=== PATIENT | male | born 1960 | race Caucasian/White ===

== ENCOUNTER 2017-10-13 10:04 | Day surgery (SDC) | payer BC ==
[2017-10-11 17:53] VITALS: BMI 25.7
[~2017-10-13 10:04] MED LIST: LACTATED RINGERS 1,000 ML IV SCH; LIDOCAINE 1% 20 ML VIAL (10MG/ML) FOR IV START INTRADERMA PRN
[2017-10-13 11:04] VITALS: RESP 16; TEMP 97.7
[2017-10-13 11:13] LABS: Glucose,Whole Blood 97 mg/dL (75-99)
[2017-10-13] MEDS ORDERED: PROPOFOL 10 MG/ML 20 ML VIAL IV ONE (11:38)
--- NOTE | 2017-10-13 11:48 | P.PCN ---
Date of Procedure: 10/13/17 Procedure(s) Performed: BRIEF HISTORY: Patient is a 57-year-old, pleasant, pleasant white male, scheduled for an upper endoscopy as a part of evaluation of epigastric pain, excessive belching and postprandial abdominal bloating for the last 3 months duration. He was tried on Carafate as well as Nexium with no relief. PROCEDURE PERFORMED: Esophagogastroduodenoscopy with biopsy. PREOPERATIVE DIAGNOSIS: Epigastric pain, post prandial abdominal bloating for 3 months duration IV sedation per anesthesia. PROCEDURE: After informed consent was obtained, the patient was brought into the endoscopy unit. IV sedation was administered by Anesthesia under continuous monitoring. Initially the Olympus GIF-140 video endoscope was inserted into the mouth. Esophagus intubated without any difficulty. It was gradually advanced into the stomach and duodenum and carefully examined. The bulb and the second part of the duodenum appeared normal. The abscess were done from the duodenum to rule out celiac disease. The scope at this time was withdrawn to the stomach , adequately insufflated with air, and upon careful examination, mucosa of the antrum, had mild gastritis and biopsies were done from this area. The body, cardia and the fundus appeared normal. The scope was then withdrawn into the esophagus. The GE junction was located at 39 cm from the incisors. There was a small hiatal hernia noted. There was one superficial erosion at the GE junction consistent with LA grade A reflux esophagitis. The rest of the esophagus appeared normal and the patient tolerated the procedure well. IMPRESSION: 1. Mild antral gastritis. 2. Small hiatal hernia and LA grade a reflux esophagitis. RECOMMENDATIONS: The findings of this examination were discussed with the patient as well as his family. He was advised to follow with the biopsy results. He was advised to try Zantac and 50 mg twice daily [id number] and follow antireflux measures..
[2017-10-13 12:47] VITALS: BP 134/87; PULSE 72
== END 2017-10-13 13:09 | disposition home or self-care (01) ==
LOC: ORWHC2ENDO 10:04
PROVIDERS: ATTEND Internal Medicine Gastroenterology
DX: K21.0 Gastro-esophageal reflux disease with esophagitis (principal); K29.70 Gastritis, unspecified, without bleeding; K44.9 Diaphragmatic hernia without obstruction or gangrene; I10 Essential (primary) hypertension; Z88.1 Allergy status to other antibiotic agents; Z79.899 Other long term (current) drug therapy
CPT/HCPCS: 43239; 88305; 88342; J2704

== ENCOUNTER → 2018-01-12 | Outpatient (CLI) | payer BC ==
--- NOTE | 2018-01-12 14:40 | XR ---
EXAMINATION TYPE: XR lumbosacral spine min 4V DATE OF EXAM: 01/12/2018 CLINICAL HISTORY: Low back pain with history of arthritis TECHNIQUE: Frontal, lateral, and oblique images of the lumbar spine are obtained. COMPARISON: None FINDINGS: There are 5 lumbar type vertebral bodies identified. There is slight retrolisthesis of L2 with respect to L3. The remaining lumbar spine shows satisfactory alignment without evidence of acut e fracture or dislocation. Vertebral body heights are maintained. Mild degenerative changes of the lumbar spine is seen as intervertebral disc height loss at L2-L3 and L5-S1 with small anterior osteop hyte at L2-L3 and facet arthropathy from L3 through S1. The oblique images appear within normal limit s. The overlying soft tissue appears unremarkable. Cholecystectomy clips are incidentally noted. The re is gastrectasis with an air-filled prominent stomach contour. IMPRESSION: 1. No acute fracture of the lumbar spine. 2. Mild multilevel degenerative changes of the lumbar spine without appreciated radiographic neural f oraminal narrowing. Degree of neuroforaminal narrowing, spinal canal stenosis and disc herniation or better evaluated with MRI, which could be performed for further evaluation. 3. Minimal retrolisthesis of L2 on L3, likely degenerative in nature.
== END | disposition home or self-care (01) ==
LOC: RADXRMAIN 13:44
PROVIDERS: ATTEND Internal Medicine
DX: M43.16 Spondylolisthesis, lumbar region (principal); M47.816 Spondylosis without myelopathy or radiculopathy, lumbar region
CPT/HCPCS: 72110

== ENCOUNTER → 2018-05-25 | Outpatient (CLI) | payer BC ==
--- NOTE | 2018-05-25 23:04 | MR ---
EXAMINATION TYPE: MR lumbar spine wo con DATE OF EXAM: 05/25/2018 COMPARISON: 03/18/2016 HISTORY: LBP, BLE radic x 3 years TECHNIQUE: Multiplanar, multisequence images of the lumbar spine were acquired. The lumbar vertebra have normal alignment. There is some degenerative mild disc space narrowing from L2 to S1. There are posterior disc bulges and herniation at L2-3 L3-4 L4-5. There is developmentally large spinal canal and no significant spinal stenosis. There is also small posterior disc bulge at L5 -S1. Lumbar nerve roots appear normal. There is bilateral L5-S1 neural foraminal narrowing due to dis c space narrowing and mild facet arthropathy. There is no compression fracture. There is no paraspina l mass. Upper sacroiliac joints appear normal. There is mild left-sided neural foraminal narrowing at L3-4. IMPRESSION: Multilevel spondylotic changes and posterior multilevel lumbar disc herniation. No spinal stenosis. M ild neural foraminal narrowing at L5-S1.
== END | disposition home or self-care (01) ==
LOC: RADMRIMAIN 15:36
PROVIDERS: ATTEND Internal Medicine
DX: M99.73 Connective tissue and disc stenosis of intervertebral foramina of lumbar region (principal); M51.26 Other intervertebral disc displacement, lumbar region; M47.816 Spondylosis without myelopathy or radiculopathy, lumbar region
CPT/HCPCS: 72148

== ENCOUNTER 2018-07-18 08:09 | Day surgery (SDC) | payer BC ==
[2018-07-17 09:41] VITALS: BMI 25.7
[~2018-07-18 08:09] MED LIST changes: -LIDOCAINE 1% 20 ML VIAL (10MG/ML) FOR IV START INTRADERMA PRN
[2018-07-18 08:55] VITALS: RESP 16; TEMP 98.1
[2018-07-18] MEDS ORDERED: LIDOCAINE 1% 20 ML VIAL (10MG/ML) FOR IV START INTRADERMA ONE (09:06)
--- NOTE | 2018-07-18 09:54 | P.PCN ---
Date of Procedure: 07/18/18 Procedure(s) Performed: PREOPERATIVE DIAGNOSIS: 1- Lumbar Degenerative Disc Diseases 2-Lumbar radiculopathy POSTOPERATIVE DIAGNOSIS: 1-Lumber Degenerative Disc Diseases 2-Lumbar radiculopathy PROCEDURE 1. Lumbar epidural steroid injection under fluoroscopic guidance at the L4-5 level. 2. Lumbar epidurogram. ANESTHESIA: Local with 1% lidocaine 3 ml and , moderate sedation with intravenous Versed 2 mg ,and fentanyle 50 Mcg EBL: Minimal PROCEDURE INDICATION: The patient with low back pain and radiculitis symptoms unresponsive to conservative treatment. Fluoroscopy was used to optimize visualization of the needle placement and to maximize safety. PROCEDURE DESCRIPTION / TECHNIQUE: The patient was seen and identified in the preoperative area. Risks, benefits , complications including but not limited to infections ,bleeding ,allergic reaction to the medications ,nerve damage and not complete pain releife , and alternatives were discussed with the patient. The patient agreed to proceed with the procedure and signed the consent. IV was started, and vital signs were stable. Patient was taken to the OR and time out was completed. The patient was placed in the prone position on procedure table and a pillow was placed under the abdomen to reduce lumbar lordosis. The lumbosacral area was prepped and draped in the usual sterile fashion.ere closely monitored during the procedure. Conscious sedation was used during the procedure to decrease patients anxiety. Vital signs was monitered during the entire procedure. Using anterior-posterior fluoroscopy, the L4-5 interlaminar space was identified and the skin over this site was marked and then infiltrated with 1% lidocaine subcutaneously. Subsequently, a 20-gauge Tuohy epidural needle was inserted and advanced toward the epidural space using the ``Loss of resistance technique and guided by AP and lateral fluoroscopy. The correct needle position in the epidural space was verified with the injection of 2 mL of the water soluble contrast dye Isovue 200 contrast and observing an excellent epidurogram with the epidural spread of the dye, after negative aspiration for blood and CSF and in the absence of paresthesias. Again after negative aspiration, a 6 ml mixture containing 20 mg of Dexamethasone and 2 ml of preservative free Normal Saline, and 2 ml of preservative free lidocaine 1% solution was injected and a washout of epidurogram was seen. Needle was withdrawn intact, skin was cleansed, and bandages were applied. COMPLICATIONS: None DISPOSITION / PLANS: The patient was placed in a supine position and transferred to the recovery area in a stable condition for observation. There was no evidence of lower extremity motor or sensory deficit after the procedure. Patient was discharged from the recovery room after meeting discharge criteria. Home discharge instructions were given to the patient by the staff. The patient was reexamined prior to discharge. The patient will schedule a follow up in the clinic in 2-4 weeks.
[2018-07-18] MEDS ORDERED: IV FLUID CONTINUATION 1,000 ML IV ONE (09:57)
--- NOTE | 2018-07-18 10:02 | FL ---
EXAMINATION TYPE: FL guided pain mgmt statistic DATE OF EXAM: 07/18/2018 CLINICAL HISTORY: Low back pain. TECHNIQUE: Fluoroscopy. COMPARISON: None. FINDINGS: Fluoroscopic guidance was provided during pain relief procedure performed by Dr. Ramos . A total of 9 seconds of fluoroscopic time was utilized during the procedure and two spot images ar e acquired. Images acquired shows needle localization at L4-L5 level. IMPRESSION: As Above.
[2018-07-18 10:15] VITALS: BP 122/81; PULSE 73
== END 2018-07-18 10:32 | disposition home or self-care (01) ==
LOC: ORPAIN 08:09
PROVIDERS: ATTEND Specialist
DX: M51.16 Intervertebral disc disorders with radiculopathy, lumbar region (principal); I10 Essential (primary) hypertension; K21.9 Gastro-esophageal reflux disease without esophagitis; M19.90 Unspecified osteoarthritis, unspecified site; Z88.1 Allergy status to other antibiotic agents
CPT/HCPCS: 62323; J2250; J1030; J3010; Q9966; 99152

== ENCOUNTER 2018-08-08 07:44 | Day surgery (SDC) | payer BC ==
[2018-08-06 09:04] VITALS: BMI 37.0
[2018-08-08 08:46] VITALS: RESP 18; TEMP 98
[2018-08-08] MEDS ORDERED: LACTATED RINGERS 1,000 ML IV ONE (08:47)
[2018-08-08] MEDS ORDERED: LIDOCAINE 1% 20 ML VIAL (10MG/ML) FOR IV START INTRADERMA ONE (08:47)
--- NOTE | 2018-08-08 10:09 | P.PCN ---
Date of Procedure: 08/08/18 Procedure(s) Performed: PREOPERATIVE DIAGNOSIS: 1- Lumbar Degenerative Disc Diseases 2-Lumbar radiculopathy POSTOPERATIVE DIAGNOSIS: 1-Lumber Degenerative Disc Diseases 2-Lumbar radiculopathy PROCEDURE 1. Lumbar epidural steroid injection under fluoroscopic guidance at the L5-S1 level. 2. Lumbar epidurogram. ANESTHESIA: Local with 1% lidocaine 3 ml and , moderate sedation with intravenous Versed 2 mg ,and fentanyle 50 Mcg EBL: Minimal PROCEDURE INDICATION: The patient with low back pain and radiculitis symptoms unresponsive to conservative treatment. Fluoroscopy was used to optimize visualization of the needle placement and to maximize safety. PROCEDURE DESCRIPTION / TECHNIQUE: The patient was seen and identified in the preoperative area. Risks, benefits , complications including but not limited to infections ,bleeding ,allergic reaction to the medications ,nerve damage and not complete pain releife , and alternatives were discussed with the patient. The patient agreed to proceed with the procedure and signed the consent. IV was started, and vital signs were stable. Patient was taken to the OR and time out was completed. The patient was placed in the prone position on procedure table and a pillow was placed under the abdomen to reduce lumbar lordosis. The lumbosacral area was prepped and draped in the usual sterile fashion.ere closely monitored during the procedure. Conscious sedation was used during the procedure to decrease patients anxiety. Vital signs was monitered during the entire procedure. Using anterior-posterior fluoroscopy, the L5-S1 interlaminar space was identified and the skin over this site was marked and then infiltrated with 1% lidocaine subcutaneously. Subsequently, a 20-gauge Tuohy epidural needle was inserted and advanced toward the epidural space using the ``Loss of resistance technique and guided by AP and lateral fluoroscopy. The correct needle position in the epidural space was verified with the injection of 2 mL of the water soluble contrast dye Isovue 200 contrast and observing an excellent epidurogram with the epidural spread of the dye, after negative aspiration for blood and CSF and in the absence of paresthesias. Again after negative aspiration, a 6 ml mixture containing 80 mg of Depo- Medrol, and 2 ml of preservative free Normal Saline, and 2 ml of preservative free lidocaine 1% solution was injected and a washout of epidurogram was seen. Needle was withdrawn intact, skin was cleansed, and bandages were applied. COMPLICATIONS: None DISPOSITION / PLANS: The patient was placed in a supine position and transferred to the recovery area in a stable condition for observation. There was no evidence of lower extremity motor or sensory deficit after the procedure. Patient was discharged from the recovery room after meeting discharge criteria. Home discharge instructions were given to the patient by the staff. The patient was reexamined prior to discharge. The patient will schedule a follow up in the clinic in 2-4 weeks.
[2018-08-08] MEDS ORDERED: IV FLUID CONTINUATION 1,000 ML IV ONE (10:16)
[2018-08-08 10:32] VITALS: BP 121/84; PULSE 82
--- NOTE | 2018-08-08 11:27 | FL ---
Fluoroscopy HISTORY: Pain 4 seconds fluoroscopy time supplied to the referring clinician. 1 intraoperative C-arm images document the procedure. See dictated report from anesthesia. MTDD
== END 2018-08-08 10:55 | disposition home or self-care (01) ==
LOC: ORPAIN 07:44
PROVIDERS: ATTEND Anesthesiology
DX: M51.16 Intervertebral disc disorders with radiculopathy, lumbar region (principal); I10 Essential (primary) hypertension; K21.9 Gastro-esophageal reflux disease without esophagitis
CPT/HCPCS: 62323; J2250; J1030; J3010; Q9966

== ENCOUNTER → 2018-10-01 | Outpatient (CLI) | payer BC ==
[2018-10-01 11:54] VITALS: BP 126/51; PULSE 82; RESP 16
--- NOTE | 2018-10-01 12:00 | P.PN ---
Subjective Progress Note Date: 10/01/18 Principal diagnosis: Lumbar radiculopathy doing well, pain in low back. better with rest. Had LESI x 2, some improvement. Pain still going down left leg to calf. Patient is going on vacation a [place] and wants to repeat the third epidural. He reports his overall function is improved epidurals and current pain medication regimen. He uses gabapentin and baclofen for another doctor. He denies any side effects from the medications. Objective - Vital Signs Vital signs: Vital Signs Temp Pulse 82 10/01/18 11:51 Resp 16 10/01/18 11:51 BP 126/51 10/01/18 11:51 Pulse Ox 98 10/01/18 11:51 Intake & Output 09/30/18 10/01/18 10/01/18 18:59 06:59 18:59 Weight 87.09 kg - Exam PHYSICAL EXAM: Constitutional: Awake and alert no distress Cardiovascular exam: Regular rate, no lower extremity edema, palpable pulses bilaterally Respiratory exam: No audible wheezing, no accessory muscle usage Abdominal exam: Soft nontender Muscular skeletal exam: - Cervical spine: Nontender to palpation bilaterally. Range of motion is not limited. Spurling is negative bilateral. Facet loading is negative bilaterally - Lumbar spine: Decreased lumbar lordosis. No changes in skin. Nontender palpation bilateral. Patient has full range of motion in flexion and extension as well as lateral sidebending. Straight leg raise is positive on the left Facet loading is negative. Nontender over the SI joints. JORDAN Negative, Gaenselons negative, SI Joint compression negative. Neuro exam: Normal sensation bilateral upper and lower extremities. Deep tendon reflexes are 1 + on the left patellar. 2+ on the right. Trujillo's is negative Psychiatric exam: Cooperative, good insight Assessment and Plan Assessment: Assessment #1 lumbar radiculopathy #2 lumbar spondylosis without myelopathy Plan: Plan #1 discussed the patient potentially repeating the third epidural steroid injection as he had a series of epidurals a few years ago and reported excellent relief after the third one. He has been feeling well since that one series of epidurals. He will continue use his non-opioid pain medications as prescribed by his other doctor. We'll set him up to repeat his epidural next week or 2 and follow-up after he gets back from vacation.
== END | disposition home or self-care (01) ==
LOC: PNWHC3 11:36
PROVIDERS: ATTEND Hospitalist
DX: M47.26 Other spondylosis with radiculopathy, lumbar region (principal)
CPT/HCPCS: 99211

== ENCOUNTER → 2018-11-08 | Outpatient (CLI) | payer BC ==
[2018-11-08 13:03] VITALS: BP 113/76; PULSE 67; RESP 16
--- NOTE | 2018-11-08 13:26 | P.PN ---
Subjective Progress Note Date: 11/08/18 Mike is a pleasant 50-year-old gentleman who presents today with continued low back pain going down his legs. He reports pain going down to the back of his thighs all the way down into his calves. He reports numbness into both posterior thighs. He reports that his pain is worse with extension of his lumbar spine walking or standing for prolonged period he reports is better at rest. He's had successful epidural steroid injections 2 years ago. He had 6 weeks of physical therapy done in 2018 and continues to do the home exercises that were provided to him from physical therapy. He reports he is doing core strengthening exercises and lower extremity strengthening exercises at home. He had 2 epidural steroid injections done at the end of 2018 and reports that they were helpful transiently. He reports that the effect lasted about 4 weeks. He just returned from a trip overseas and reports that his pain started to come back after that long trip. He denies any new numbness or tingling going down his lower extremities. Denies any bowel or bladder incontinence. Objective - Vital Signs Vital signs: Vital Signs Temp Pulse 67 11/08/18 12:54 Resp 16 11/08/18 12:54 BP 113/76 11/08/18 12:54 Pulse Ox 96 11/08/18 12:54 Intake & Output 11/07/18 11/08/18 11/08/18 18:59 06:59 18:59 Weight 86.183 kg - Exam General: Awake and alert oriented 3 no distress Respiratory exam: No audible wheezing no accessory muscle usage Cardiovascular exam: regular rate, palpable bilateral pulses, no lower extremity edema Abdominal exam: No distention nontender to palpation Cervical spine: Normal alignment, Spurling's negative, facet loading negative Lumbar spine: Loss of lumbar lordosis, normal alignment, tender to palpation over bilateral paraspinal muscles, facet loading is positive bilaterally. Straight leg raise is positive bilateral. Sacroiliac joints: Nontender to palpation, JORDAN is negative, Gaenselon negative Neuro exam: Normal sensation in bilateral upper extremities, deep tendon reflexes are 2+ bilateral upper extremities. Normal sensation in bilateral lower extremities. Deep tendon reflexes are 1+ + in lower extremities at patellar reflex and 2+ in Achilles reflex Psych exam: Cooperative, appropriate mood Assessment and Plan Assessment: #1 lumbar radiculopathy #2 lumbar spinal stenosis Plan: At this point I believe Mike benefit from a third epidural steroid injection to improve his radicular symptoms. He is to be physically active and doing home exercises that he learned at physical therapy in 2018. He does not use any medications at this point. We will attempt to get authorization for a third epidural steroid injection as he had good transient relief from the epidural injections.
== END ==
LOC: PNWHC3 12:40
PROVIDERS: ATTEND Hospitalist
DX: M48.061 Spinal stenosis, lumbar region without neurogenic claudication (principal); M54.16 Radiculopathy, lumbar region; Z79.891 Long term (current) use of opiate analgesic
CPT/HCPCS: 99211

== ENCOUNTER 2018-12-05 07:39 | Day surgery (SDC) | payer BC ==
[2018-12-03 14:39] VITALS: BMI 25.7
[~2018-12-05 07:39] MED LIST changes: -LACTATED RINGERS 1,000 ML IV SCH; +SODIUM CHLORIDE 0.9% 500 ML 500 ML IV SCH
[2018-12-05 07:54] VITALS: TEMP 96.4
[2018-12-05] MEDS ORDERED: LACTATED RINGERS 1,000 ML IV ONE (07:57)
[2018-12-05] MEDS ORDERED: LIDOCAINE 1% 20 ML VIAL (10MG/ML) FOR IV START INTRADERMA ONE (07:57)
--- NOTE | 2018-12-05 09:08 | P.PCN ---
Date of Procedure: 12/05/18 Surgeon: An Singh Pathology: none sent Condition: stable Disposition: PACU Description of Procedure: PREOPERATIVE DIAGNOSIS: 1-Lumbar radiculopathy 2- Lumber Degenerative Disc Diseases. POSTOPERATIVE DIAGNOSIS: 1-Lumbar radiculopathy. 2-Lumbar Degenerative Disc Diseases PROCEDURE 1. Lumbar epidural steroid injection under fluoroscopic guidance at the L3-4 level in the left paramedian approach 2. Lumbar epidurogram. ANESTHESIA: Local with 1% lidocaine; and IV moderate conscious sedation with Versed and fentanyl EBL: Minimal PROCEDURE INDICATION: The patient with low back pain and radiculitis symptoms unresponsive to conservative treatment. Fluoroscopy was used to optimize visualization of the needle placement and to maximize safety. PROCEDURE DESCRIPTION / TECHNIQUE: The patient was seen and identified in the preoperative area. Risks, benefits , complications including but not limited to infections ,bleeding ,allergic reaction to the medications ,nerve damage and not complete pain relief , and alternatives were discussed with the patient. The patient agreed to proceed with the procedure and signed the consent. IV was started, and vital signs were stable. Patient was taken to the OR and time out was completed. The patient was placed in the prone position on procedure table and a pillow was placed under the abdomen to reduce lumbar lordosis. The lumbosacral area was prepped and draped in the usual sterile fashion with ChloraPrep.Patient was closely monitored during the procedure. Conscious sedation was used during the procedure to decrease patients anxiety. Vital signs were monitered during the entire procedure. Using anterior-posterior fluoroscopy, the L3-4 interlaminar space was identified and the skin over this site was marked and then infiltrated with 1% lidocaine subcutaneously. Subsequently, a 20-gauge Tuohy epidural needle was inserted and advanced toward the epidural space using the Loss of resistance to air technique and guided by AP and lateral fluoroscopy. The correct needle position in the epidural space was verified with the injection of 1 mL of the water soluble contrast dye Omnipaque 180 contrast and observing an excellent epidurogram with the epidural spread of the dye, after negative aspiration for blood and CSF and in the absence of paresthesias. Again after negative aspiration, a 8 ml mixture containing 40 mg of Kenalog and 5 ml of preservative free Normal Saline, and 2 ml of preservative free ropivacaine 0.5% solution was injected and a washout of epidurogram was seen. Needle was withdrawn intact, skin was cleansed, and bandages were applied. patient tolerated procedure well and was transferred to PACU in stable condition. COMPLICATIONS: None DISPOSITION / PLANS: The patient was placed in a supine position and transferred to the recovery area in a stable condition for observation. There was no evidence of lower extremity motor or sensory deficit after the procedure. Patient was discharged from the recovery room after meeting discharge criteria. Home discharge instructions were given to the patient by the staff. The patient was reexamined prior to discharge. The patient will schedule a follow up in the clinic in 2-4 weeks.
[2018-12-05] MEDS ORDERED: IV FLUID CONTINUATION 1,000 ML IV ONE (09:11)
[2018-12-05 09:29] VITALS: BP 114/76; PULSE 87; RESP 18
--- NOTE | 2018-12-05 10:02 | FL ---
Fluoroscopy INDICATION: Pain FINDINGS: Fluoroscopy time: 9 seconds. Images obtained: 2. IMPRESSIONS: 1. Documentation of fluoroscopy.
== END 2018-12-05 09:44 | disposition home or self-care (01) ==
LOC: ORPAIN 07:39
PROVIDERS: ATTEND Anesthesiology
DX: M51.16 Intervertebral disc disorders with radiculopathy, lumbar region (principal); M48.061 Spinal stenosis, lumbar region without neurogenic claudication; Z88.1 Allergy status to other antibiotic agents
CPT/HCPCS: 62323; J2250; J3301; J3010; Q9966; 99152

== ENCOUNTER → 2019-01-15 | Outpatient (CLI) | payer BC ==
[2019-01-15 13:03] VITALS: BP 121/79; PULSE 94; RESP 18
--- NOTE | 2019-01-15 13:43 | P.PAINPG ---
Subjective Progress Note Date: 01/15/19 Principal diagnosis: Bilateral lumbar spondylosis; lumbar radiculopathy This is a pleasant 58-year-old gentleman who is undergone 2 previous lumbar epidural steroid injections recently. He reports these have offered him profound relief of his pain. He does still have back pain however his sciatic component of his complaint has been completely relieved. 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 He also exercises at the gym on a near daily basis. He finds both of these helpful. He denies any bowel or bladder dysfunction. He denies any excessive depression. Objective - Vital Signs Vital signs: Vital Signs Temp Pulse 94 01/15/19 12:57 Resp 18 01/15/19 12:57 BP 121/79 01/15/19 12:57 Pulse Ox 96 01/15/19 12:57 Intake & Output 01/14/19 01/15/19 01/15/19 18:59 06:59 18:59 Weight 87.09 kg - Exam General: The patient is alert and oriented. Patient is not sedated Patient answers all question appropriately. Cardiac: Heart is regular in rate and rhythm Respiratory: Clear to auscultation. No audible wheezes. Abdomen: Soft nontender nondistended. Musculoskeletal: Strength is normal bilaterally. Sensation is normal bilaterally. Straight leg raise is negative bilaterally. Neurological: Reflexes are preserved and symmetric bilaterally. Assessment and Plan Plan: Patient will follow up on an as-needed basis for repeat of lumbar epidural steroid injection. PQRS Measure Charge Sheet Measure #130: Documentation of Current Meds in Medical Chart: Patient not eligible for medications to be documented Measure #226: Tobacco Use: Screen & Cessation Intervention: Pt not a tobacco user Measure #111: Pneumonia Vaccination: Pneumococcal vaccine NOT administered or previously given Measure #47: Advance Care Plan: Advance care planning discussed & documented, pt chose/unable to give Measure #412: Opioid Treatment Agreement: No documentation of signed opioid treatment agreement Measure #408: Opioid Therapy Follow-up Evaluation: Patient had NO f/u eval minimum every 3 months during opioid therapy Measure #317: Preventitive Care & Scrn High Bld Press & F/U: Normal blood pressure, f/u not required Measure #128: Body Mass Index (BMI) Screening & Follow-up: BMI documented within normal parameters Measure #131: Pain Assessment & Follow-up: Pain positive & plan documented Measure #431: Unhealthy Alcohol Use Preventative Care & Scrn: Patient not identified as an unhealthy alcohol user PQRS Narrative: Smoking Status Never smoker Do You Want the Pneumonia Vaccine Up to Date Vaccine AT THIS TIME? Blood Pressure 121/79 Pain Intensity [Lower Back] 3 Scale Used Numeric (1 - 10) Hx Alcohol Use (MH) Yes: OCC. Home Medications: Ambulatory Orders Lisinopril-Hctz 10-12.5 mg [Zestoretic 10-12.5] 1 tab PO HS 04/26/16 Baclofen 10 mg PO BID PRN 05/25/16 L.acidoph,Paracasei, B.lactis [Probiotic] 1 cap PO DAILY 05/25/16 Prostate Hr Administrator 1 tab PO DIRECTED 05/25/16 Ibuprofen [Motrin] 800 mg PO BID PRN 10/01/18 Multivitamins, Thera [Multivitamin (formulary)] 1 tab PO DAILY 12/03/18 Zegerid (Unknown Dose) 1 dose PO DAILY PRN 12/03/18 Controlled Substance Measures - Controlled Substance Measures Is patient prescribed a controlled substance at discharge?: No
== END | disposition home or self-care (01) ==
LOC: PNWHC3 12:42
PROVIDERS: ATTEND Pain Medicine Pain Medicine
DX: M47.26 Other spondylosis with radiculopathy, lumbar region (principal); Z79.1 Long term (current) use of non-steroidal anti-inflammatories (NSAID); Z79.899 Other long term (current) drug therapy
CPT/HCPCS: 99211

== ENCOUNTER → 2019-03-14 | Outpatient (CLI) | payer BC ==
--- NOTE | 2019-03-14 12:51 | MR ---
EXAMINATION TYPE: MR ankle RT wo con DATE OF EXAM: 03/14/2019 COMPARISON: None HISTORY: Right ankle pain and limited movement right foot TECHNIQUE: Multiplanar, multisequence images of the right ankle were acquired without contrast per de partment protocol. FINDINGS: No bone marrow edema is seen on T1-weighted imaging. There is a small calcaneal enthesophyt e/heel spur noted and small osteophytes of the talonavicular joint and tibiotalar joint. No acute fra cture or malalignment is seen of the right ankle. Ankle mortise congruity is maintained. There is a small amount of fluid surrounding the posterior tibial, flexor digitorum, and flexor hallu cis longus tendons, overall within normal limits however there is thickening and abnormal signal of t he insertional fibers of the posterior tibialis representing mild tenosynovitis/tendinosis. There is a split tear of the peroneus brevis appears long segment extending from below the ankle join t to the its insertion at the base of the fifth metatarsal. The anterior talofibular ligament and posterior talofibular ligament as well as the deltoid ligament appear intact as does the spring ligament. The Lisfranc ligament also appears intact. No significant joint effusion is seen of the ankle. Small amount of fat stranding in Kager's fat pad is nonspecific. IMPRESSION: 1. Long segment split tear of the peroneus brevis beginning below the ankle joint extending to the in sertion of the base of fifth metatarsal. 2. Mild distal and insertional tendinosis and tenosynovitis of the tibialis posterior. 3. Minimal nonspecific fat stranding in Kager's fat-pad.
== END | disposition home or self-care (01) ==
LOC: RADMRIMAIN 07:18
PROVIDERS: ATTEND Orthopaedic Surgery
DX: S86.311A Strain of muscle(s) and tendon(s) of peroneal muscle group at lower leg level, right leg, initial encounter (principal); M65.9 Synovitis and tenosynovitis, unspecified; M79.4 Hypertrophy of (infrapatellar) fat pad; M79.89 Other specified soft tissue disorders; I10 Essential (primary) hypertension; M72.2 Plantar fascial fibromatosis

== ENCOUNTER → 2019-07-15 | Outpatient (CLI) | payer BC ==
--- NOTE | 2019-07-15 22:45 | XR ---
EXAMINATION TYPE: XR lumbar spine 2 or 3V DATE OF EXAM: 07/15/2019 COMPARISON: 01/12/2018 HISTORY: 58-year-old male with chronic low back pain TECHNIQUE: 3 views FINDINGS: 5 lumbar type vertebral bodies. Cholecystectomy clips. Moderate loss of disc height at L5-S1 and mild additional levels. Hypertrophic facet arthropathy throughout with grade 1 retrolisthesis at L2-L3 an d L3-L4. Vertebral body heights are preserved. IMPRESSION: Moderate degenerative disc disease L5-S1 and mild additional levels. Hypertrophic facet arthropathy t hroughout with grade 1 retrolisthesis at L2/L3 and L3-L4. No vertebral compression collapse. Overall stable from 01/12/2018.
== END | disposition home or self-care (01) ==
LOC: RADXRMAIN 17:03
PROVIDERS: ATTEND Internal Medicine
DX: M51.37 Other intervertebral disc degeneration, lumbosacral region (principal); M46.96 Unspecified inflammatory spondylopathy, lumbar region
CPT/HCPCS: 72100

== ENCOUNTER → 2019-09-11 | Outpatient (CLI) | payer BC ==
--- NOTE | 2019-09-11 22:58 | MR ---
EXAMINATION TYPE: MR lumbar spine wo con DATE OF EXAM: 09/11/2019 COMPARISON: MRI lumbar spine May 25, 2018 HISTORY: Low back pain, sciatica, ger leg pain/weakness TECHNIQUE: Multiplanar, multisequence imaging of the lumbar spine is performed without IV contrast. FINDINGS: Sagittal images of the lumbar spine show vertebral body height to remain satisfactory. Ther e are stable grade 1 retrolisthesis L2 on L3. There is persistent multilevel disc desiccation and everton rly mild multilevel disc space narrowing with more moderate to severe disc space narrowing noted at L 5-S1 level. Slight grade 1 retrolisthesis L5 on S1 redemonstrated. The conus medullaris remains keny l in position and signal in the mid L1 level. The bone marrow signal intensity remains within normal limits. Mild multilevel anterior spurring redemonstrated. Axial images at T12-L1 and L1-L2 levels remain within normal limits. Axial images at L2-L3 level demonstrate mild/moderate broad disc bulge with left paracentral disc pro trusion component effacing the anterior thecal sac and causing mild left greater than right bilateral anterior inferior neural foraminal narrowing. No significant change from prior. Axial images at the L3-L4 level shows [id number] broad disc bulge effaces the anterior thecal s ac with mild facet degenerative changes bilaterally. There is mild right and moderate left-sided neur al foraminal narrowing, encroachment left L3 nerve plaque present sagittal image 3 and axial image 17 . No significant change from prior. Axial images at the L4-L5 level mild facet degenerative changes bilaterally. There is mild/moderate b road-based posterior disc protrusion effaces the anterior thecal sac. There is mild bilateral anterio r inferior neural foraminal narrowing. No significant change from prior. Posterior annular tear redem onstrated. Axial images at L5-S1 level mild/moderate facet degenerative changes bilaterally. There is moderate b road-based posterior disc protrusion minimally effacing the anterior thecal sac. There is fairly mode rate bilateral inferior neural foraminal narrowing. Spondylolisthesis redemonstrated. No significant change from prior. No suspicious retroperitoneal findings. IMPRESSION: Multilevel degenerative changes most prominent at L2-L3 through the L5-S1 levels as detai led above.
== END | disposition home or self-care (01) ==
LOC: RADMRIMAIN 18:11
PROVIDERS: ATTEND Neurological Surgery
DX: M47.26 Other spondylosis with radiculopathy, lumbar region (principal); M47.27 Other spondylosis with radiculopathy, lumbosacral region
CPT/HCPCS: 72148

== ENCOUNTER → 2019-10-01 | Outpatient (CLI) | payer BC ==
--- NOTE | 2019-10-01 16:50 | XR ---
EXAMINATION TYPE: XR lumbosacral spine min 4V DATE OF EXAM: 10/01/2019 COMPARISON: 07/15/2019 HISTORY: 59-year-old male spondylosis, radiculopathy, low back pain TECHNIQUE: 7 views FINDINGS: 5 lumbar type vertebral bodies. Vertebral body heights are preserved. Facet arthropathy lower lumbar spine. No pars interarticularis defect. Moderate to severe degenerative disc disease L5-S1 with loss of disc height and endplate sclerosis. Mild degenerative disc disease elsewhere with mild disc height loss. Neutral view shows grade 1 retrolisthesis at L2-L3, L3-L4, and L4-L5. This is similar as compared to 07/15/2019. Upon flexion, there is correction of the retrolisthesis at both L3-L4 and L4-L5 and unchanged retroli sthesis at L2-L3. Upon extension, the findings are the same as on the neutral view. IMPRESSION: 1. Hypertrophic facet arthropathy. Mild multilevel degenerative disc disease, more moderate at L5-S1. 2. Grade 1 retrolisthesis L2-L3, L3-L4, and L4-L5. 3. Flexion corrects the retrolisthesis at L3-L4 and L4-L5. 4. No change from neutral upon extension.
== END | disposition home or self-care (01) ==
LOC: RADXRMAIN 15:42
PROVIDERS: ATTEND Neurological Surgery
DX: M43.16 Spondylolisthesis, lumbar region (principal); M51.37 Other intervertebral disc degeneration, lumbosacral region; M46.96 Unspecified inflammatory spondylopathy, lumbar region; M54.16 Radiculopathy, lumbar region
CPT/HCPCS: 72110

== ENCOUNTER → 2019-10-10 | Outpatient (CLI) | payer BC ==
--- NOTE | 2019-10-11 09:21 | CT ---
EXAMINATION TYPE: CT lumbar spine wo con DATE OF EXAM: 10/10/2019 COMPARISON: HISTORY: Low back pain, no known injury. CT DLP: 526.9 mGycm CONTRAST: CT scan of the lumbar is performed , patient injected with mL of . TECHNIQUE: CT of the lumbar spine is performed on a spiral scan at 3 mm thick sections. Reconstructed images are performed in the coronal and sagittal planes. FINDINGS: T12-L1: No focal disc herniation or significant disc bulge is evident. No spinal canal stenosis or neural foraminal stenosis is present. L1-L2: No focal disc herniation or significant disc bulge is evident. No spinal canal stenosis or n eural foraminal stenosis is present L2-L3: Disc bulge is present. Some calcified ligament may be present as well. Findings have mild ante rior thecal sac compression. No AP spinal canal stenosis present. Mild disc space narrowing may be pr esent. L3-L4: Broad-based disc bulge has mild to moderate anterior thecal sac compression. No AP spinal kim l stenosis present. Mild left foraminal stenosis present. L4-L5: No focal disc herniation or significant disc bulge is evident. No spinal canal stenosis or n eural foraminal stenosis is present. Mild facet degenerative changes present. L5-S1: There is loss of disc height L5-S1. Some mild endplate spurring is present. No significant the dionne sac compression or narrowing of the spinal canal is evident. Mild facet degenerative changes pres ent. Vertebral alignment appears normal. IMPRESSION: 1. Mild disc bulging present L2-3 L3-4. 2. Mild endplate spurring L3-4 L5-S1. 3. Mild left foraminal narrowing L3-4
== END | disposition home or self-care (01) ==
LOC: RADCTMAIN 16:56
PROVIDERS: ATTEND Neurological Surgery
DX: M48.061 Spinal stenosis, lumbar region without neurogenic claudication (principal); M47.26 Other spondylosis with radiculopathy, lumbar region; M51.86 Other intervertebral disc disorders, lumbar region
CPT/HCPCS: 72131

== ENCOUNTER → 2019-11-18 | Outpatient (CLI) | payer BC ==
--- NOTE | 2019-11-18 13:17 | XR ---
EXAMINATION TYPE: XR chest 2V DATE OF EXAM: 11/18/2019 COMPARISON: NONE HISTORY: Cough and congestion for 2 months. TECHNIQUE: Frontal and lateral views of the chest are obtained. FINDINGS: There is no focal air space opacity, pleural effusion, or pneumothorax seen. The cardiac silhouette size is within normal limits. Prominent stomach with air-fluid level incidentally noted. The osseous structures are intact. IMPRESSION: No suspicious acute pulmonary process.
== END ==
LOC: RADXRMAIN 12:48
PROVIDERS: ATTEND Internal Medicine
DX: R05 Cough (principal)
CPT/HCPCS: 71046

== ENCOUNTER → 2020-09-09 | Outpatient (CLI) | payer BC ==
[2020-09-09 12:58] LABS: Basophils % (A) 1 %; Eosinophils # (A) 0.2 k/uL (0-0.7); Eosinophils % (A) 3 %; HCT 47.1 % (39.0-53.0); HGB 16.1 gm/dL (13.0-17.5); Lymphocytes % (A) 28 %; MCH 31.4 pg (25.0-35.0); MCHC 34.2 g/dL (31.0-37.0); MCV 91.8 fL (80.0-100.0); Mean Platelet Volume 6.5; Monocytes # (A) 0.5 k/uL (0-1.0); Monocytes % (A) 8 %; Neutrophils % (A) 57 %; Platelet Count 268 k/uL (150-450); RBC 5.13 m/uL (4.30-5.90); RDW 11.7 % (11.5-15.5); WBC 6.9 k/uL (3.8-10.6)
--- NOTE | 2020-09-09 13:06 | XR ---
EXAMINATION TYPE: XR chest 2V DATE OF EXAM: 09/09/2020 COMPARISON: 11/18/2019 HISTORY: Shortness of breath TECHNIQUE: Frontal and lateral views of the chest are obtained. FINDINGS: Scattered senescent parenchymal changes noted. Hyperinflation compatible with COPD. No evidence for infiltrate. No evidence for atelectasis. Heart size is stable. Mediastinal structures are stable and grossly unremarkable. No evidence for hilar prominence. Degenerative changes dorsal spine. IMPRESSION: 1. No evidence for acute pulmonary disease.
[2020-09-09 13:08] LABS: INR 0.9 (<1.2); Prothrombin Time 9.8 sec (9.0-12.0)
[2020-09-09 13:11] LABS: Potassium 4.4 mmol/L (3.5-5.1)
[2020-09-09 13:12] LABS: ALT 33 U/L (4-49); AST 38 U/L (17-59); African American GFR (CKD) >90 (>60 ml/min/1.73 sqM); Albumin 4.1 g/dL (3.5-5.0); Alkaline Phosphatase 48 U/L (38-126); Anion Gap 8 mmol/L; Blood Urea Nitrogen 18 mg/dL (9-20); Calcium 9.3 mg/dL (8.4-10.2); Carbon Dioxide 24 mmol/L (22-30); Chloride 107 mmol/L (98-107); Glucose 137 mg/dL (74-99); Non-African American GFR(CKD) >90 (>60 ml/min/1.73 sqM); Sodium 139 mmol/L (137-145); Total Bilirubin 1.6 mg/dL (0.2-1.3); Total Protein 7.1 g/dL (6.3-8.2)
[2020-09-09 13:14] LABS: Appearance,Urine Clear (Clear); Bilirubin,Urine Negative (Negative); Blood,Urine Negative (Negative); Color,Urine Yellow; Glucose,Urine (UA) Negative (Negative); Ketones,Urine Negative (Negative); Leukocyte Esterase,Urine Negative (Negative); Nitrite,Urine Negative (Negative); PH, Urine 6.5 (5.0-8.0); Protein,Urine Negative (Negative); Specific Gravity,Urine 1.023 (1.001-1.035); Urobilinogen,Urine <2.0 mg/dL (<2.0)
[2020-09-10 21:05] LABS: Hemoglobin A1C 5.5 % (4.0-6.0)
== END | disposition home or self-care (01) ==
LOC: RADXRMAIN 12:08
PROVIDERS: ATTEND Internal Medicine
DX: Z01.810 Encounter for preprocedural cardiovascular examination (principal); I10 Essential (primary) hypertension
CPT/HCPCS: 71046; 80053; 81003; 83036; 85025; 85610; 85730; 86850; 86900; 86901; 87070

== ENCOUNTER → 2020-12-17 | Outpatient (CLI) | payer BC ==
--- NOTE | 2020-12-17 17:26 | US ---
EXAMINATION TYPE: US liver DATE OF EXAM: 12/17/2020 COMPARISON: None CLINICAL HISTORY: 60-year-old male R94.5 ABN LIVER FUNCTIONS. TECHNIQUE: Multiple sonographic images of the right upper quadrant are obtained. FINDINGS: EXAM MEASUREMENTS: Liver Length: 18.2 cm CBD: 0.3 cm Right Kidney: 10.5 x 4.3 x 4.5 cm Pancreas: Obscured by bowel gas Liver: MDifficult to penetrate, heterogeneousting. GallbladderSurgically absentent Evidence for sonographic Lennon's signNo No CBDwnlwnl Right KidneywnlNo hydronephrosis. IMPRESSIO 1. Mild hepatomegaly (18.2 cm) with moderate to severe hepatic steatosis. 2. Status post cholecystectomy. No biliary ductal dilatation.
== END | disposition home or self-care (01) ==
LOC: RADUSWWP 12:07
PROVIDERS: ATTEND Internal Medicine
DX: K76.0 Fatty (change of) liver, not elsewhere classified (principal); Z90.49 Acquired absence of other specified parts of digestive tract
CPT/HCPCS: 76705

== ENCOUNTER → 2021-03-23 | Outpatient (CLI) | payer BC ==
--- NOTE | 2021-03-23 19:45 | CT ---
EXAMINATION TYPE: CT abdomen pelvis w con DATE OF EXAM: 03/23/2021 COMPARISON: 06/28/2013 HISTORY: RT side pain, tenderness, possible acute appendicitis w/localized peritonitis. CT DLP: 888.30 mGycm Automated exposure control for dose reduction was used. CONTRAST: Performed with IV Contrast, patient injected with 100 mL of Isovue 300. Images obtained from the diaphragm to the floor the pelvis with oral and IV contrast. Lung bases are clear of infiltrate. There is no pleural effusion. Heart size is normal. There is no p ericardial effusion. Liver and spleen appear intact. The bile ducts are not dilated. There are clips from cholecystectomy. There is no pancreatic mass. Stomach is intact. There is no adrenal mass. Kidneys show satisfactory contrast opacification. There is no hydronephrosi s. Ureters are not dilated. There is no retroperitoneal adenopathy. Bladder distends smoothly. There is no inguinal hernia. There is no ascites. There is no free fluid in the pelvis. I see no pelvic mas s. There is some wall thickening of the distal ileum extending to the ileocecal valve. Is also some wall thickening of a single loop of small bowel in the left mid abdomen involving mid jejunum. There is o ral contrast material seen in the large and small bowel. There is no evidence of a bowel obstruction. Contrast reaches the rectum. The appendix is posterior and appears normal. The lumbar vertebra have normal alignment. There is disc surgery at L2-3 noted. There is no compressi on fracture. The bony pelvis is intact. Hip joints are intact. There is no hip dysplasia. IMPRESSION: There is thickening of the wall of the terminal ileum that could relate to Crohn's disease. There is also a second area of possible involvement in the left mid abdomen. This is a change compared to old exam. Normal appendix.
== END | disposition home or self-care (01) ==
LOC: RADCTMAIN 16:49
PROVIDERS: ATTEND Internal Medicine
DX: R10.9 Unspecified abdominal pain (principal)
CPT/HCPCS: 74177; Q9967

== ENCOUNTER 2021-04-09 12:03 | Day surgery (SDC) | payer BC ==
[2021-04-08 09:38] VITALS: BMI 27.8
[~2021-04-09 12:03] MED LIST changes: +LACTATED RINGERS 1,000 ML IV SCH; -SODIUM CHLORIDE 0.9% 500 ML 500 ML IV SCH
[2021-04-09] MEDS ORDERED: LIDOCAINE 1% (10MG/ML) FOR IV START INTRADERMA ONE (12:40)
[2021-04-09 12:43] VITALS: RESP 16; TEMP 98.3
[2021-04-09] MEDS ORDERED: PROPOFOL 10 MG/ML 20 ML VIAL IV ONE (13:04)
[2021-04-09] MEDS ORDERED: MIDAZOLAM 2 MG/2 ML VIAL ONE (13:04)
--- NOTE | 2021-04-09 13:22 | P.PCN ---
Date of Procedure: 04/09/21 Procedure(s) Performed: BRIEF HISTORY: Patient is a 60-year-old pleasant white male scheduled for an elective colonoscopy as a part of evaluation of recent episode of lower abdominal pain and diarrhea that lasted for a few days.he had CT of the abdomen and pelvis done on February 2021 that showed thickening of the terminal ileum suspicious for Crohn's disease. He was empirically treated with antibiotics and his symptoms have completely resolved. PROCEDURE PERFORMED: Colonoscopy with random biopsy. PREOPERATIVE DIAGNOSIS: Lower abdominal pain and intermittent diarrhea. IV sedation per Anesthesia. PROCEDURE: After informed consent was obtained, the patient, was brought into the endoscopy unit. IV sedation was administered by Anesthesia under continuous monitoring. Digital rectal examination was normal. Initially the Olympus CF-160 flexible video colonoscope was then inserted in the rectum, gradually advanced into the cecum without any difficulty. Careful examination was performed as the scope was gradually being withdrawn. Ileocecal valve and the appendiceal orifice were visualized and appeared normal. Prep was excellent. The ileum was intubated and 20 cm visualized and appeared normal. Biopsies were done from this area. Mucosa of the cecum, ascending colon, appeared normal. In the transverse colon and biopsies were done. Rest of the transverse colon, descending colon, sigmoid colon, and rectum appeared normal. Retroflexion was performed in the rectum and no lesions were seen. The patient tolerated the procedure well. IMPRESSION: Normal-appearing colon from rectum to cecum as well as terminal ileum with no evidence of inflammatory bowel disease or colorectal neoplasia . RECOMMENDATIONS: Findings of this examination were discussed with the patient as well as his family. He was advised to follow with the biopsy results. He can have a repeat screening colonoscopy in 10 years.
[2021-04-09 13:59] VITALS: BP 130/78; PULSE 99
== END 2021-04-09 14:21 | disposition home or self-care (01) ==
LOC: ORWHC2ENDO 12:03
PROVIDERS: ATTEND Internal Medicine Gastroenterology
DX: R10.30 Lower abdominal pain, unspecified (principal); R19.7 Diarrhea, unspecified; I10 Essential (primary) hypertension; K21.9 Gastro-esophageal reflux disease without esophagitis; Z79.899 Other long term (current) drug therapy; Z88.1 Allergy status to other antibiotic agents
CPT/HCPCS: 88305; 45380; J2250; J2704; 45378

== ENCOUNTER → 2021-06-22 | Outpatient (CLI) | payer BC ==
--- NOTE | 2021-06-22 16:09 | US ---
EXAMINATION TYPE: US venous doppler duplex LE LT DATE OF EXAM: 06/22/2021 3:47 PM COMPARISON: NONE CLINICAL HISTORY: M78.605 LEG PAIN, LEFT. SIDE PERFORMED: Left TECHNIQUE: The lower extremity deep venous system is examined utilizing real time linear array sonog deborah with graded compression, doppler sonography and color-flow sonography. VESSELS IMAGED: Common Femoral Vein Deep Femoral Vein Greater Saphenous Vein * Femoral Vein Popliteal Vein Small Saphenous Vein * Proximal Calf Veins (* superficial vessels) Left Leg: Negative for DVT IMPRESSION: No evidence for DVT.
== END | disposition home or self-care (01) ==
LOC: RADUSWWP 14:57
PROVIDERS: ATTEND Internal Medicine
DX: M79.672 Pain in left foot (principal)

== ENCOUNTER → 2022-02-22 | Outpatient (CLI) | payer BC ==
--- NOTE | 2022-02-22 19:24 | XR ---
EXAMINATION TYPE: XR foot complete RT DATE OF EXAM: 02/22/2022 CLINICAL HISTORY: Right foot in particular heel pain. TECHNIQUE: Frontal, lateral, and oblique images of the right foot are obtained. COMPARISON: None FINDINGS: There is no acute fracture/dislocation evident in the right foot. Flexion and varus positi oning distal fourth and fifth toes. The joint spaces in the right foot appear within normal limits. Small to moderate-sized superior and inferior calcaneal spurs. The overlying soft tissue appears unr emarkable. IMPRESSION: As above.
== END | disposition home or self-care (01) ==
LOC: RADXRMAIN 17:08
PROVIDERS: ATTEND Internal Medicine
DX: M77.31 Calcaneal spur, right foot (principal); M21.271 Flexion deformity, right ankle and toes; M21.171 Varus deformity, not elsewhere classified, right ankle

== ENCOUNTER → 2022-08-15 | Outpatient (CLI) | payer BC ==
--- NOTE | 2022-08-15 10:05 | CA ---
Exercise Stress Test Report Name: Mike Nichole Exam Date: 08/15/2022 09:24 Exam Location: [place] Stress Ht (in): 71 Wt (lb): 195 BSA: 2.09 Ordering Phys: Kyle Edge MD Referring Phys: ZULEYMA,, Technologist: Mukul Ramsey Age: 62 Gender: M : 1960 Procedure CPT: Indications: I25.10 heart disease ICD-10 Codes: Patient History: Hypertension and history of heart disease Medications: LISINOPRIL,,,,,, BACLOFEN,,,,,, PROSTATE HEALTH,,,,,, MULTIVITAMIN,,,,,, LIVER REFRESH,,,,,, CELIUM,,,,, Meds past 24 hrs: Pretest Chest Pain: STRESS TEST Neil Protocol Exercise Duration (min:sec): 09:[address] Depressions (mm): Angina Score: White Score: Resting HR (bpm): 86 Peak HR (bpm): 162 Resting BP (mmHg): 118 / 62 Peak BP (mmHg): 159 / 72 MPHR: 158 Target HR: 134 % MPHR: 103 METS: 10.5 Total Dose: Peak Dose: Atropine: Double Product: 12603 BP Response: Stress Termination: Reached target heart rate Stress Symptoms: No chest pain or symptoms Stress Summary: ECG ANALYSIS Resting ECG: Stress ECG: CONCLUSIONS Baseline EKG revealed normal sinus rhythm without significant ST-T changes. Patient walked on a standard Neil protocol for 9 minutes and achieved a maximum heart rate of 162 bpm which is available 85% of predicted maximal. He developed fatigue and shortness of breath but did not have any angina or arrhythmia. EKG did not reveal any ST segment changes to indicate ischemia. By EKG criteria this is a negative stress test with fair exercise capacity. The nuclear scan results which are more pertinent will be reported by the radiologist. Dr. Rajni Wyman MD (Electronically Signed) Final Date: 15 August 2022 10:04
--- NOTE | 2022-08-15 11:38 | NM ---
EXAMINATION TYPE: NM stress cardiolite complete DATE OF EXAM: 08/15/2022 COMPARISON: NONE HISTORY: Heart disease. History of hypertension and family history of heart disease. TECHNIQUE: After the intravenous administration of 9.6 mCi Tc 99m Sestamibi - Rest images obtained 6 0 minutes post injection. The patient exercised using a JANESSA protocol and 1 minute prior to peak e xercise was injected with 25.7 mCi Tc 99m Sestamibi - Stress images obtained 25 minutes post injectio n. FINDINGS: Targeted heart rate was achieved during performance of the study. Review of stress and rest SPECT velasquez ges demonstrates no distinct perfusion abnormality. Gated analysis shows normal wall motion with an estimated left ventricular ejection fraction of 60 %. IMPRESSION: No scintigraphic evidence for reversible ischemia
== END | disposition home or self-care (01) ==
LOC: RADNMMAIN 07:54
PROVIDERS: ATTEND Internal Medicine
DX: I25.10 Atherosclerotic heart disease of native coronary artery without angina pectoris (principal); I10 Essential (primary) hypertension
CPT/HCPCS: 93017; 78452; A9500

== ENCOUNTER → 2023-08-28 | Outpatient (CLI) | payer BC ==
--- NOTE | 2023-08-28 12:51 | XR ---
EXAMINATION TYPE: XR wrist complete LT DATE OF EXAM: 08/28/2023 12:44 PM INDICATION: Patient age:Male; 63 years old; Reason for study: M25.532 L WRIST PAIN; PHH. COMPARISON: None TECHNIQUE: 4 views of the left wrist. Frontal, navicular, lateral, and oblique. FINDINGS: No acute osseous pathology, joint dislocation, or joint effusion. No evidence of any soft tissue swelling is seen. IMPRESSION: No acute osseous pathology.
== END | disposition home or self-care (01) ==
LOC: RADXRMAIN 12:26
PROVIDERS: ATTEND Internal Medicine
DX: M25.532 Pain in left wrist (principal)

== ENCOUNTER → 2024-11-22 | Outpatient (CLI) | payer BC ==
--- NOTE | 2024-11-27 07:28 | MR ---
EXAMINATION TYPE: MR liver wo/w con and mrcp DATE OF EXAM: 11/22/2024 10:13 AM COMPARISON: . Ultrasound 07/26/2023, 12/17/2020. CLINICAL INDICATION: Male, 64 years old with history of R74.01,R17; PHH, Elevated Bilirubin/AST TECHNIQUE MRI ABDOMEN WITH CONTRAST: Multiplanar multi-sequence imaging was performed without and wit h IV contrast/gadolinium. The patient was given 8.5 cc Gadobutrol gadolinium intravenously and dynam ic post-VIBE (volumetric interpolated breath-hold gradient recall echo) imaging was performed. IV Contrast: 8.5 mL Gadobutrol (None, if empty) TECHNIQUE MRCP ABDOMEN WITHOUT CONTRAST: Multi planar, T2-weighted imaging with and without fat satur ation and chemical shift imaging was performed of the abdomen. Then, heavily T2 weighted imaging (bin f-Fourier acquisition single-shot turbo spin-echo) was utilized in order to study the biliary system. Maximum intensity projection images were reconstructed from the original data of the biliary tree. 3D reconstructions and MIP imaging performed on a separate workstation. FINDINGS: MRCP: * The intrahepatic ducts have a normal appearance. * The extrahepatic ducts have a normal appearance. * The common hepatic duct measures r mm in size. * The common bile duct at the level of the pancreatic head measures 5 mm in size. * The pancreatic duct is normal. * The gallbladder is surgically absent. Abdomen: Liver: No evidence for cirrhosis. Signal dropout on chemical shift out of phase imaging. Scattered si mple appearing hepatic cyst. Pancreas: No ductal dilation. No evidence for solid mass. Spleen: Normal for size. Adrenal glands: Unremarkable. Kidneys: No evidence for obstructive uropathy. No suspicious renal masses. Stomach and Bowel: No evidence for bowel wall thickening or evidence for obstruction. Retroperitoneum/Peritoneum: No evidence of pneumoperitoneum or free fluid. Vasculature: No aortic aneurysm. Musculoskeletal: The osseous structures appear intact. Lymph Nodes: No gross evidence for lymphadenopathy. Abdominal wall: Unremarkable. IMPRESSION: 1. No evidence to suggest ductal stricture, choledocholithiasis, or biliary ductal dilatation. 2. Hepatic steatosis. [facility], , 11/27/2024 7:26 AM
== END | disposition home or self-care (01) ==
LOC: RADMRIMAIN 08:45
PROVIDERS: ATTEND Internal Medicine
DX: K76.0 Fatty (change of) liver, not elsewhere classified (principal); R74.01 Elevation of levels of liver transaminase levels
CPT/HCPCS: 74183; A9585

== ENCOUNTER → 2025-01-01 | Outpatient (CLI) | payer BC ==
--- NOTE | 2025-01-01 14:29 | US ---
EXAMINATION TYPE: US carotid duplex BILAT DATE OF EXAM: 01/01/2025 COMPARISON: NONE CLINICAL INDICATION: Male, 64 years old with history of I65.23 CAROTID STENOSIS I25.10 CAD; HTN, High cholesterol Additional History: .... TECHNIQUE: Grayscale, color Doppler and spectral Doppler evaluation of the bilateral carotid systems and vertebral arteries. Indirect Doppler criteria was utilized. FINDINGS: EXAM MEASUREMENTS: RIGHT: Peak Systolic Velocity (PSV) cm/sec ----- Right CCA: 94.1 ----- Right ICA: 75.6 ----- Right ECA: 117.3 ICA/CCA ratio: 0.8 RIGHT: End Diastole cm/sec ----- Right CCA: 19.3 ----- Right ICA: 20.6 ----- Right ECA: 17.6 LEFT: Peak Systolic Velocity (PSV) cm/sec ----- Left CCA: 88.6 ----- Left ICA: 75.7 ----- Left ECA: 113.4 ICA/CCA ratio: 0.9 LEFT: End Diastole cm/sec ----- Left CCA: 23.7 ----- Left ICA: 20.8 ----- Left ECA: 21.5 VERTEBRALS (direction of flow): Right Vertebral: Antegrade Left Vertebral: Antegrade Rhythm: Normal PROSTHETIC AIDE NOTES: Plaque seen bilateral CCA. No elevated velocities. Color Doppler imaging shows patency with blood flow throughout the carotid artery. Spectral waveforms are within normal limits. IMPRESSION: Right: No hemodynamically significant stenosis. Left: No hemodynamically significant stenosis. Criteria for Assigning % of Stenosis / Diameter reduction (Estimation based on the indirect measurements of the internal carotid artery velocities (ICA PSV). 1. Normal (no stenosis)=ICA PSV < 125 cm/s: ratio < 2.0: ICA EDV<40 cm/s. 2. Less than 50% stenosis=ICA PSV < 125 cm/s: ratio < 2.0: ICA EDV<40 cm/s. 3. 50 to 69% stenosis=ICA PSV of 125 to 230 cm/s: ration 2.0 ? 4.0: ICA EDV 40-100 cm/s. 4. Greater than 70% stenosis to near occlusion= ICA PSV > 230 cm/s: ratio > 4.0: ICA EDV > 100 cm/s. 5. Near occlusion= ICA PSV velocities may be low or undetectable: variable ratio and ICA EDV. 6. Total occlusion=unable to detect flow. [facility], , 01/01/2025 2:26 PM
--- NOTE | 2025-01-01 18:26 | CA ---
Transthoracic Echo Report Name: Mike Nichole Age: 64 Gender: M : 1960 Exam Date: 01/01/2025 13:21 Exam Location: [place] Ht (in): 71 Wt (lb): 187 Ordering Physician: Kyle Edge MD Attending/Referring Phys: Kyle Edge MD [employer] Maldonado Hamm RDCS Procedure CPT: Indications: I25.10 Cardiac Hx: Technical Quality: Good Contrast 1: Total Dose (mL): Contrast 2: Total Dose (mL): MEASUREMENTS (Male / Female) Normal Values 2D ECHO LV Diastolic Diameter PLAX 5.4 cm 4.2 - 5.9 / 3.9 - 5.3 cm LV Systolic Diameter PLAX 3.8 cm IVS Diastolic Thickness 1.0 cm 0.6 - 1.0 / 0.6 - 0.9 cm LVPW Diastolic Thickness 0.8 cm 0.6 - 1.0 / 0.6 - 0.9 cm LV Relative Wall Thickness 0.3 LVOT Diameter 2.3 cm LA Systolic Diameter LX 4.1 cm 3.0 - 4.0 / 2.7 - 3.8 cm LV Diastolic Volume MOD BP 128.5 cm??? 67 - 155 / 56 - 104 cm??? LV Systolic Volume MOD BP 52.3 cm??? - 58 / 19 - 49 cm??? LV Ejection Fraction MOD BP 59.3 % >= 55 % LV Cardiac Index MOD BP 2648.8 cm???/min???m??? LV Diastolic Volume MOD 4C 125.4 cm??? LV Systolic Volume MOD 4C 49.8 cm??? LV Ejection Fraction MOD 4C 60.3 % LV Cardiac Index MOD 4C 2626.9 cm???/min???m??? LV Diastolic Length 4C 8.7 cm LV Systolic Length 4C 6.8 cm LV Diastolic Volume MOD 2C 130.3 cm??? LV Systolic Volume MOD 2C 53.0 cm??? LV Ejection Fraction MOD 2C 59.3 % LV Cardiac Index MOD 2C 2684.2 cm???/min???m??? LV Diastolic Length 2C 8.9 cm LV Systolic Length 2C 7.0 cm LA Volume 53.1 cm??? 18 - 58 / 22 - 52 cm??? LA Volume Index 25.6 cm???/m??? 16 - 28 cm???/m??? DOPPLER MV Area PHT 3.3 cm??? Mitral E Point Velocity 53.1 cm/s Mitral A Point Velocity 53.5 cm/s Mitral E to A Ratio 1.0 MV Deceleration Time 230.7 ms TR Peak Velocity 189.9 cm/s TR Peak Gradient 14.4 mmHg FINDINGS Left Ventricle Left ventricular ejection fraction is estimated at 55-60 %. Normal left ventricular systolic function with no obvious regional wall motion abnormalities.left ventricular cavity size normal. Right Ventricle Normal right ventricular size and function. Right ventricular systolic pressure within normal limits. Right Atrium Normal right atrial size. Left Atrium Mildly increased left atrial diameter. Mitral Valve Mitral valve thickened. No mitral stenosis. Mild mitral regurgitation. Aortic Valve Trileaflet aortic valve. Aortic valve sclerosis. No aortic stenosis. No aortic regurgitation. Tricuspid Valve Structurally normal tricuspid valve. No tricuspid stenosis. Mild tricuspid regurgitation. Pulmonic Valve Structurally normal pulmonic valve. No pulmonic stenosis. No pulmonic regurgitation. Pericardium No pericardial effusion. Aorta Normal size aortic root and proximal ascending aorta. CONCLUSIONS 1. Normal left ventricular size and systolic function 2. Mild mitral and tricuspid regurgitation Previewed by: Dr. Denny Ramirez MD (Electronically Signed) Final Date: 01 January 2025 18:25
== END | disposition home or self-care (01) ==
LOC: RADUSWWP 12:59
PROVIDERS: ATTEND Internal Medicine
DX: I25.10 Atherosclerotic heart disease of native coronary artery without angina pectoris (principal); I65.23 Occlusion and stenosis of bilateral carotid arteries; E78.00 Pure hypercholesterolemia, unspecified; I10 Essential (primary) hypertension; I08.1 Rheumatic disorders of both mitral and tricuspid valves
CPT/HCPCS: 93306; 93880